=== PATIENT | male | born 1970 | race Caucasian/White ===

== ENCOUNTER 2016-12-28 19:00 | Emergency (ER) | payer BC ==
[2016-12-28] MEDS ORDERED: PREDNISONE 20 MG TABLET PO ONE (19:07)
[2016-12-28] MEDS ORDERED: FAMOTIDINE 20 MG TABLET PO ONE (19:07)
[2016-12-28] MEDS ORDERED: EPINEPHRINE INJ/PF 1 MG/1 ML AMPULE SUBCUT PRN (19:07)
--- NOTE | 2016-12-28 19:10 | ER Document Report ---
ED Medical Screen (RME) - General Chief Complaint: Allergic Reaction Stated Complaint: POSSIBLE ALLERGIC REACTION Time Seen by Provider: 12/28/16 19:06 Notes: 46-year-old male patient comes emergency room with acute allergic reaction. He took some Aleve about 5:45 PM this evening and about 30 minutes later began breaking out in a red rash with diffuse severe itching. He took 2 Benadryl about 6:30 PM. He is known to be allergic to naproxen or Naprosyn and was unaware that Aleve was that same drug. There is no respiratory problems, there is no chest pain. He will be given subcutaneous epinephrine at this time, 60 mg prednisone p.o., and 40 mg of Pepcid p.o. I have greeted and performed a rapid initial assessment of this patient. A comprehensive ED assessment and evaluation of the patient, analysis of test results and completion of the medical decision making process will be conducted by additional ED providers. TRAVEL OUTSIDE OF THE [place] IN LAST 30 DAYS: No - Related Data Allergies/Adverse Reactions: naproxen sodium [From Aleve] Allergy (Severe, Verified 04/27/16 09:03) N/V,hives,throat closes,tongue swells tylenol #3 Adverse Reaction (Severe, Uncoded 04/27/16 09:03) N/V Past Medical History - Past Medical History Cardiac Medical History: Reports: Hx Congestive Heart Failure, Hx Hypertension - Patient was treated for high blood pressure in the past, but has been taken off medications Denies: Hx Heart Attack Pulmonary Medical History: Denies: Hx Asthma, Hx Bronchitis, Hx COPD, Hx Pneumonia Neurological Medical History: Reports: Hx Seizures - as child. Denies: Hx Cerebrovascular Accident Renal/ Medical History: Reports: Hx Kidney Stones - removed of two stones 5-[address] Peña, had stent placed. Denies: Hx Peritoneal Dialysis GI Medical History: Reports: Hx Ulcer Musculoskeltal Medical History: Reports Hx Arthritis Infectious Medical History: Past Surgical History: Reports: Hx Orthopedic Surgery. Denies: Hx Pacemaker - Immunizations Hx Diphtheria, Pertussis, Tetanus Vaccination: No - unsure Physical Exam - Vital signs Vitals: Temp Pulse Resp BP Pulse Ox 98.3 F 141 H 26 H 154/98 H 97 12/28/16 19:03 12/28/16 19:03 12/28/16 19:03 12/28/16 19:03 12/28/16 19:03 Course - Vital Signs Vital signs: Temp Pulse Resp BP Pulse Ox 98.3 F 141 H 26 H 154/98 H 97 12/28/16 19:03 12/28/16 19:03 12/28/16 19:03 12/28/16 19:03 12/28/16 19:03
--- NOTE | 2016-12-28 19:45 | ER Document Report ---
ED General - General Chief Complaint: Allergic Reaction Stated Complaint: POSSIBLE ALLERGIC REACTION Time Seen by Provider: 12/28/16 19:06 Notes: 6-year-old male with an allergy to naproxen but not other NSAIDs presents with resolved whole-body redness and itching as well as dizziness all which occurred about half an hour after taking Aleve which he did not realize was the same as naproxen. He had no nausea vomiting dizziness or throat difficult breathing or wheezing. Was given meds prior to my evaluation including epinephrine steroids and Pepcid. He now feels fine except for slight jitters. Reassessed at 10 PM. He feels totally fine and has normal vital signs. Safe for discharge home. I have discussed with the patient there likely diagnosis, aftercare plan, follow -up plans and my usual and customary return precautions. They verbalized understanding of this. TRAVEL OUTSIDE OF THE [place] IN LAST 30 DAYS: No - Related Data Allergies/Adverse Reactions: naproxen sodium [From Aleve] Allergy (Severe, Verified 04/27/16 09:03) N/V,hives,throat closes,tongue swells tylenol #3 Adverse Reaction (Severe, Uncoded 04/27/16 09:03) N/V Past Medical History - Social History Smoking Status: Never Smoker Family History: Reviewed & Not Pertinent Patient has suicidal ideation: No Patient has homicidal ideation: No - Past Medical History Cardiac Medical History: Reports: Hx Congestive Heart Failure, Hx Hypertension - Patient was treated for high blood pressure in the past, but has been taken off medications Denies: Hx Heart Attack Pulmonary Medical History: Denies: Hx Asthma, Hx Bronchitis, Hx COPD, Hx Pneumonia Neurological Medical History: Reports: Hx Seizures - as child. Denies: Hx Cerebrovascular Accident Renal/ Medical History: Reports: Hx Kidney Stones - removed of two stones 5-[address] Peña, had stent placed. Denies: Hx Peritoneal Dialysis GI Medical History: Reports: Hx Ulcer Musculoskeltal Medical History: Reports Hx Arthritis Infectious Medical History: Past Surgical History: Reports: Hx Orthopedic Surgery. Denies: Hx Pacemaker - Immunizations Hx Diphtheria, Pertussis, Tetanus Vaccination: No - unsure Hx Pneumococcal Vaccination: 05/22/09 Review of Systems - Review of Systems Notes: REVIEW OF SYSTEMS GEN: Denies fever, chills, weight loss ENT: Denies sore throat, nasal discharge, ear pain EYES: Denies blurry vision, eye pain, discharge CV: Denies chest pain, palpitations, edema RESP: Denies cough, shortness of breath, wheezing GI: Denies abdominal pain, nausea, vomiting, diarrhea MSK: Denies joint pain/swelling, edema, SKIN: Denies rash, skin lesions LYMPH: Denies swollen glands/lymph nodes NEURO: Denies headache, focal weakness or numbness, dizziness PSYCH: Denies depression, suicidal or homicidal ideation PHYSICAL EXAMINATION General: No acute distress, well-nourished Head: Atraumatic, normocephalic ENT: Mouth normal, oropharynx moist, no exudates or tonsillar enlargement Eyes: Conjunctiva normal, pupils equal, lids normal Neck: No JVD, supple, no guarding CVS: Normal rate, regular rhythm, no murmurs Resp: No resp distress, equal and normal breath sounds bilaterally GI: Nondistended, soft, no tenderness to palpation, no rebound or guarding Ext: No deformities, no edema, normal range of motion in upper and lower ext Back: No CVA or midline TTP Skin: No rash, warm Lymphatic: No lymphadeopathy noted Neuro: Awake, alert. Face symmetric. GCS 15. Erythroderma pruritus Physical Exam - Vital signs Vitals: Temp Pulse Resp BP Pulse Ox 98.3 F 141 H 26 H 154/98 H 97 12/28/16 19:03 12/28/16 19:03 12/28/16 19:03 12/28/16 19:03 12/28/16 19:03 Course - Re-evaluation Re-evalutation: 12/28/16 19:40 38-year-old male presents with NSAID related anaphylaxis, Mild. He is now asymptomatic after epinephrine. I will observe him for a total of 3 hours and discharged with dual epi-pens aevrxr-som-ozeox steroids and Pepcid for 3 days. I have discussed with the patient there likely diagnosis, aftercare plan, follow -up plans and my usual and customary return precautions. They verbalized understanding of this. - Vital Signs Vital signs: Temp Pulse Resp BP Pulse Ox 98.3 F 141 H 22 H 134/95 H 94 12/28/16 19:03 12/28/16 19:03 12/28/16 19:46 12/28/16 19:46 12/28/16 19:46 Discharge - Discharge Clinical Impression: Anaphylaxis Qualifiers: Encounter type: initial encounter Qualified Code(s): T78.2XXA - Anaphylactic shock, unspecified, initial encounter Condition: Good Disposition: HOME, SELF-CARE Instructions: Anaphylaxis Kit (OM) Prescriptions: Diphenhydramine HCl [Benadryl] 25 mg PO Q6 #12 capsule Epinephrine 1 mg IM ONCE PRN #2 ml PRN Reason: Famotidine [Pepcid 20 mg Tablet] 20 mg PO DAILY #12 tablet Prednisone 40 mg PO DAILY #6 tablet
[2016-12-28 22:09] VITALS: BP 126/89
== END 2016-12-28 22:10 | disposition home or self-care (01) ==
LOC: ER 19:00
DX: T88.6XXA Anaphylactic reaction due to adverse effect of correct drug or medicament properly administered, initial encounter (principal); T39.315A Adverse effect of propionic acid derivatives, initial encounter; I10 Essential (primary) hypertension
CPT/HCPCS: 99283; 96372; J0171; J7512

== ENCOUNTER 2017-03-06 12:20 | Emergency (ER) | payer BC ==
[2017-03-06] MEDS ORDERED: ASPIRIN 325 MG TABLET PO ONE (13:32)
--- NOTE | 2017-03-06 13:33 | ER Document Report ---
ED Medical Screen (RME) - General Chief Complaint: Chest Pain Stated Complaint: BLOOD PRESSURE ISSUES Time Seen by Provider: 03/06/17 13:32 Notes: Patient states for 3-4 days he has had substernal chest pain that has been intermittent. He states every time he checks his blood pressure has been high whenever he has the pain. He states he went to his primary care provider today who referred him to the emergency department. Last stress test was 7 years ago and it was normal. He denies any associated symptoms. TRAVEL OUTSIDE OF THE [place] IN LAST 30 DAYS: No - Related Data Allergies/Adverse Reactions: naproxen sodium [From Aleve] Allergy (Severe, Verified 03/06/17 12:23) N/V,hives,throat closes,tongue swells tylenol #3 Adverse Reaction (Severe, Uncoded 03/06/17 12:23) N/V Past Medical History - Social History Chew tobacco use (# tins/day): No Frequency of alcohol use: None Drug Abuse: None - Past Medical History Cardiac Medical History: Reports: Hx Congestive Heart Failure, Hx Hypertension - Patient was treated for high blood pressure in the past, but has been taken off medications Denies: Hx Heart Attack Pulmonary Medical History: Denies: Hx Asthma, Hx Bronchitis, Hx COPD, Hx Pneumonia Neurological Medical History: Reports: Hx Seizures - as child. Denies: Hx Cerebrovascular Accident Renal/ Medical History: Reports: Hx Kidney Stones - removed of two stones 5-[address] Peña, had stent placed. Denies: Hx Peritoneal Dialysis GI Medical History: Reports: Hx Ulcer Musculoskeltal Medical History: Reports Hx Arthritis Infectious Medical History: Past Surgical History: Reports: Hx Kidney (Renal Surgery) - right, Hx Orthopedic Surgery. Denies: Hx Pacemaker - Immunizations Hx Diphtheria, Pertussis, Tetanus Vaccination: No - unsure Physical Exam - Vital signs Vitals: Temp Pulse Resp BP Pulse Ox 98.5 F 66 16 161/83 H 98 03/06/17 12:24 03/06/17 12:24 03/06/17 12:24 03/06/17 12:24 03/06/17 12:24 Course - Vital Signs Vital signs: Temp Pulse Resp BP Pulse Ox 98.5 F 66 16 161/83 H 98 03/06/17 12:24 03/06/17 12:24 03/06/17 12:24 03/06/17 12:24 03/06/17 12:24
[2017-03-06 14:09] LABS: ABSOLUTE EOSINOPHILS # (AUTO) 0.2 10^3/uL (0.0-0.6); ABSOLUTE LYMPHOCYTES (AUTO) 1.6 10^3/uL (0.5-4.7); ABSOLUTE MONOCYTES (AUTO) 0.4 10^3/uL (0.1-1.4); ABSOLUTE NEUT (AUTO) 4.2 10^3/uL (1.7-8.2); BASOPHILS % (AUTO) 0.5 % (0-2); EOSINOPHILS % (AUTO) 2.4 % (0-6); HEMATOCRIT 44.1 % (37.9-51.0); HEMOGLOBIN 15.2 g/dL (13.5-17.0); HGB HCT DIFFERENCE 1.5; LYMPHOCYTES % (AUTO) 25.5 % (13-45); MEAN CORPUSCULAR HEMOGLOBIN 29.5 pg (27.0-33.4); MEAN CORPUSCULAR HGB CONC 34.5 g/dL (32.0-36.0); MEAN CORPUSCULAR VOLUME 86 fl (80-97); MONOCYTES % (AUTO) 5.9 % (3-13); RED BLOOD COUNT 5.15 10^6/uL (4.35-5.55); RED CELL DISTRIBUTION WIDTH 14.5 % (11.5-14.0); SEGMENTED NEUTROPHILS % (AUTO) 65.7 % (42-78); WHITE BLOOD COUNT 6.5 10^3/uL (4.0-10.5)
[2017-03-06 14:24] LABS: ALANINE AMINOTRANSFERASE 42 U/L (21-72); ALBUMIN 4.4 g/dL (3.5-5.0); ALKALINE PHOSPHATASE 98 U/L (38-126); ANION GAP 11 (5-19); ASPARTATE AMINO TRANSFERASE 22 U/L (17-59); BILIRUBIN,DIRECT 0.4 mg/dL (0.0-0.4); BILIRUBIN,TOTAL 0.4 mg/dL (0.2-1.3); BLOOD UREA NITROGEN 10 mg/dL (7-20); CALCIUM 9.5 mg/dL (8.4-10.2); CARBON DIOXIDE 28 mmol/L (22-30); CHLORIDE 106 mmol/L (98-107); CREATININE RESULT 0.76 mg/dL (0.52-1.25); GLUCOSE 93 mg/dL (75-110); POTASSIUM 4.7 mmol/L (3.6-5.0); SODIUM 144.5 mmol/L (137-145); TOTAL PROTEIN 6.9 g/dL (6.3-8.2)
--- NOTE | 2017-03-06 14:30 | RADIOLOGY REPORT (SQ) ---
EXAM DESCRIPTION: CHEST PA/LAT COMPLETED DATE/TIME: 03/06/2017 2:16 pm REASON FOR STUDY: cp COMPARISON: 04/27/2016 EXAM PARAMETERS: NUMBER OF VIEWS: two views TECHNIQUE: Digital Frontal and Lateral radiographic views of the chest acquired. RADIATION DOSE: NA LIMITATIONS: none FINDINGS: LUNGS AND PLEURA: No opacities, masses or pneumothorax. No pleural effusion. MEDIASTINUM AND HILAR STRUCTURES: No masses or contour abnormalities. HEART AND VASCULAR STRUCTURES: Heart normal size. No evidence for failure. BONES: No acute findings. HARDWARE: None in the chest. OTHER: No other significant finding. IMPRESSION: NO SIGNIFICANT RADIOGRAPHIC FINDING IN THE CHEST. TECHNICAL DOCUMENTATION: JOB ID: [id number] [employer]- All Rights Reserved
--- NOTE | 2017-03-06 15:13 | ER Document Report ---
ED Cardiac - General Mode of Arrival: Ambulatory Information source: Patient TRAVEL OUTSIDE OF THE [place] IN LAST 30 DAYS: No - HPI Patient complains to provider of: Chest pain Was the onset of pain: Sudden Is the pain a: New problem Chest pain location: Substernal Quality of pain: Pressure Chest pain radiation location: None Associated symptoms: None Relieved by: Other - aspirin <EMI MOLINA - Last Filed: 03/06/17 22:28> <MIRANDA OBRIEN - Last Filed: 03/06/17 23:19> - General Chief Complaint: Chest Pain Stated Complaint: BLOOD PRESSURE ISSUES Time Seen by Provider: 03/06/17 13:32 Notes: Patient is a 46-year-old male that presents to the emergency department today with complaints of chest pain prior to arrival. Patient states he has been having intermittent chest pain over the last few days and every time he develops chest pain he has found that his blood pressure is elevated into the 150s and 160s systolic. Patient states he took aspirin prior to arrival today which relieved his chest pain. Patient is on 20 mg of lisinopril for hypertension and has been for the last 3 or 4 months. Patient states when he gets the chest pain he is at rest, stating the most strenuous activity he has done in the last few days is "the laundry". Patient states he believes his grandfather had coronary artery disease, he has hyperlipidemia, hypertension, and is a smoker. Patient's last stress test was in 2006. Patient denies any radiation of pain. (EMI MOLINA) - Related Data Allergies/Adverse Reactions: naproxen sodium [From Aleve] Allergy (Severe, Verified 03/06/17 12:23) N/V,hives,throat closes,tongue swells tylenol #3 Adverse Reaction (Severe, Uncoded 03/06/17 12:23) N/V Past Medical History - General Information source: Patient - Social History Smoking Status: Current Every Day Smoker Cigarette use (# per day): Yes Chew tobacco use (# tins/day): No Frequency of alcohol use: None Drug Abuse: None Lives with: Family Family History: Reviewed & Not Pertinent Patient has suicidal ideation: No - Past Medical History Cardiac Medical History: Reports: Hx Congestive Heart Failure, Hx Hypercholesterolemia, Hx Hypertension - on 20mg Lisinopril for x3-4 months Pulmonary Medical History: Neurological Medical History: Reports: Hx Seizures - as child Renal/ Medical History: Reports: Hx Kidney Stones - removed of two stones 5-[address] Peña, had stent placed GI Medical History: Reports: Hx Ulcer Musculoskeltal Medical History: Reports Hx Arthritis Infectious Medical History: Past Surgical History: Reports: Hx Kidney (Renal Surgery) - right, Hx Orthopedic Surgery - Immunizations Hx Diphtheria, Pertussis, Tetanus Vaccination: No - unsure Hx Pneumococcal Vaccination: 05/22/09 <EMI MOLINA - Last Filed: 03/06/17 22:28> Review of Systems - Review of Systems Constitutional: No symptoms reported EENT: No symptoms reported Cardiovascular: See HPI, Chest pain - prior to arrival, relieved with aspirin which was taken prior to arrival, Other - elevated blood pressure Respiratory: No symptoms reported Gastrointestinal: No symptoms reported Genitourinary: No symptoms reported Male Genitourinary: No symptoms reported Musculoskeletal: No symptoms reported Skin: No symptoms reported Hematologic/Lymphatic: No symptoms reported Neurological/Psychological: No symptoms reported -: Yes All other systems reviewed and negative <DARLENE MOLINAON - Last Filed: 03/06/17 22:28> Physical Exam <JESSEDARLENEEMI - Last Filed: 03/06/17 22:28> <MIRANDA OBRIEN - Last Filed: 03/06/17 23:19> - Vital signs Vitals: Temp Pulse Resp BP Pulse Ox 98.5 F 66 16 161/83 H 98 03/06/17 12:24 03/06/17 12:24 03/06/17 12:24 03/06/17 12:24 03/06/17 12:24 - Notes Notes: Physical Exam: General: Alert, appears well. HEENT: Normocephalic. Atraumatic. PERRL. Extraocular movements intact. Oropharynx clear. Neck: Supple. Non-tender. Respiratory: No respiratory distress. Clear and equal breath sounds bilaterally. Cardiovascular: Regular rate and rhythm. Abdominal: Normal Inspection. Non-tender. No distension. Normal Bowel Sounds. Back: Non-tender. No deformity or step off. Extremities: Moves all four extremities. Upper extremities: Normal inspection. Normal ROM. Lower extremities: Normal inspection. No edema. Normal ROM. Neurological: Normal cognition. AAOx4. Normal speech. Psychological: Normal affect. Normal Mood. Skin: Warm. Dry. Normal color. (EMI MOLINA) Course - Laboratory Result Diagrams: 03/06/17 13:50 03/06/17 13:50 <EMI MOLINA - Last Filed: 03/06/17 22:28> - Laboratory Result Diagrams: 03/06/17 13:50 03/06/17 13:50 - Diagnostic Test Radiology reviewed: Reports reviewed - EKG Interpretation by Me EKG shows normal: Sinus rhythm Rate: Normal Rhythm: NSR <MIRANDA OBRIEN - Last Filed: 03/06/17 23:19> - Re-evaluation Re-evalutation: 03/06/17 Patient is a 46-year-old male with history of high blood pressure, high cholesterol, and smoking who comes in complaining of chest pain even at rest. Patient has been strongly encouraged to stay for workup due to what he is describing is unstable angina. Patient and his would prefer him to go home and follow-up with outpatient. Understand the risk of heart attack and . Patient will be given discharge paperwork's and is to follow-up with his primary for an outpatient stress test. Return immediately if any chest pain or any other concerns. (MIRANDA OBRIEN) - Vital Signs Vital signs: Temp Pulse Resp BP Pulse Ox 98.5 F 66 14 118/80 99 03/06/17 12:24 03/06/17 12:24 03/06/17 15:01 03/06/17 15:01 03/06/17 15:01 - Laboratory Laboratory results interpreted by me: 03/06/17 13:50 RDW 14.5 H Discharge <EMI MOLINA - Last Filed: 03/06/17 22:28> <MIRANDA OBRIEN - Last Filed: 03/06/17 23:19> - Discharge Clinical Impression: Chest pain Qualifiers: Chest pain type: unspecified Qualified Code(s): R07.9 - Chest pain, unspecified Condition: Stable Disposition: HOME, SELF-CARE Additional Instructions: Your chest pain is concerning for underlying heart disease. It is recommended that you stay in the hospital to have a further workup. If you would like to go home, it is recommended that you follow-up with your doctor as soon as possible for an outpatient stress test. If you experience any further chest pain, please come to the emergency department immediately. Please take an aspirin daily. Qian Attestation: 03/06/17 23:19 I personally performed the services described in the documentation, reviewed and edited the documentation which was dictated to the scribe in my presence, and it accurately records my words and actions. (MIRANDA OBRIEN) Scribe Documentation - Scribe Written by Qian:: Qian He, 03/06/2017 1608 acting as scribe for :: Natanael <EMI MOLINA - Last Filed: 03/06/17 22:28>
[2017-03-06 15:31] VITALS: BP 118/80
--- NOTE | 2017-03-06 18:27 | EKG REPORT ---
SEVERITY:- NORMAL ECG - SINUS RHYTHM : Confirmed by: Natalya Melton 06-Mar-2017 18:27:29
== END 2017-03-06 15:33 | disposition home or self-care (01) ==
LOC: ER 12:20
DX: R07.9 Chest pain, unspecified (principal); I10 Essential (primary) hypertension; E78.00 Pure hypercholesterolemia, unspecified; I50.9 Heart failure, unspecified; F17.210 Nicotine dependence, cigarettes, uncomplicated; Z79.899 Other long term (current) drug therapy
CPT/HCPCS: 36415; 71020; 80053; 84484; 85025; 93005; 93010; 99285

== ENCOUNTER 2017-05-25 19:04 | Emergency (ER) | payer BC ==
--- NOTE | 2017-05-25 19:33 | ER Document Report ---
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 Patient states that he was usual state of health until yesterday when he felt "exhausted" along with nonproductive cough and sinus congestion. Patient was sitting at his desk doing paperwork when he had a syncopal episode. EMS reports that his glucose in the field was 122 and that his blood pressure was 80/50. Medications: Hydrochlorothiazide, lisinopril, Lipitor. TRAVEL OUTSIDE OF THE [place] IN LAST 30 DAYS: No - HPI Onset: Just prior to arrival Onset/Duration: Gradual Quality of pain: No pain Severity: None Pain Level: Denies Associated symptoms: Weakness. denies: Chest pain, Fever, Shortness of breath Exacerbated by: Denies Relieved by: Denies Similar symptoms previously: No Recently seen / treated by doctor: No - Related Data Allergies/Adverse Reactions: naproxen sodium [From Aleve] Allergy (Severe, Verified 03/06/17 12:23) N/V,hives,throat closes,tongue swells prednisone Allergy (Intermediate, Verified 05/25/17 20:28) Hives tylenol #3 Adverse Reaction (Severe, Uncoded 03/06/17 12:23) N/V Home Medications: Current Home Medications Atorvastatin Calcium [Atorvastatin Calcium] 10 mg PO QHS 05/25/17 [History] Hydrochlorothiazide [Hydrochlorothiazide] 12.5 mg PO DAILY 05/25/17 [History] Past Medical History - General Information source: Patient - Social History Smoking Status: Never Smoker Cigarette use (# per day): No Smoking Education Provided: No Frequency of alcohol use: None Drug Abuse: None Lives with: Family Family History: Reviewed & Not Pertinent Patient has suicidal ideation: No Patient has homicidal ideation: No - Past Medical History Cardiac Medical History: Reports: Hx Congestive Heart Failure, Hx Hypercholesterolemia, Hx Hypertension - on 20mg Lisinopril for x3-4 months Denies: Hx Heart Attack Pulmonary Medical History: Denies: Hx Asthma, Hx Bronchitis, Hx COPD, Hx Pneumonia Neurological Medical History: Reports: Hx Seizures - as child. Denies: Hx Cerebrovascular Accident Renal/ Medical History: Reports: Hx Kidney Stones - removed of two stones 5-[address] Peña, had stent placed. Denies: Hx Peritoneal Dialysis GI Medical History: Reports: Hx Ulcer Musculoskeltal Medical History: Reports Hx Arthritis Infectious Medical History: Past Surgical History: Reports: Hx Kidney (Renal Surgery) - right, Hx Orthopedic Surgery. Denies: Hx Pacemaker - Immunizations Hx Diphtheria, Pertussis, Tetanus Vaccination: No - unsure Hx Pneumococcal Vaccination: 05/22/09 Review of Systems - Review of Systems Constitutional: Chills, Fever, Weakness EENT: Nose congestion Cardiovascular: Syncope Respiratory: Cough. denies: Hemoptysis, Short of breath, Wheezing Gastrointestinal: No symptoms reported Genitourinary: No symptoms reported Male Genitourinary: No symptoms reported Musculoskeletal: Muscle pain, Muscle stiffness Skin: No symptoms reported Hematologic/Lymphatic: No symptoms reported Neurological/Psychological: No symptoms reported Physical Exam - Vital signs Vitals: Resp Pulse Ox 12 100 05/25/17 19:33 05/25/17 19:33 Notes: Physical exam: GENERAL: 46-year-old man who complains of no pain. He is alert and oriented 3. His skin looks mottled and he appears weak. HEAD: Atraumatic, normocephalic. EYES: Pupils equal round and reactive to light, extraocular movements intact, sclera anicteric, conjunctiva are normal. ENT: TMs normal, nares patent, oropharynx clear without exudates. dry mucous membranes. NECK: Normal range of motion, supple without obvious mass or JVD. LUNGS: Breath sounds clear to auscultation bilaterally and equal. No wheezes rales or rhonchi. HEART: Regular rate and rhythm without murmurs, rubs or gallops. ABDOMEN: Soft, normoactive bowel sounds. No tenderness to palpation. No guarding, no rebound. No masses appreciated. No palpable masses. Rectal: Brown stool, sent for study EXTREMITIES: Normal range of motion, no pitting or edema. No clubbing or cyanosis. NEUROLOGICAL: Cranial nerves II through XII grossly intact. Normal speech, moving all extremities. PSYCH: Normal mood, normal affect. SKIN: Warm, Dry, normal turgor, no rashes or lesions noted. Bedside ultrasound: No abnormal dilatation of the order to the bifurcation Course - Re-evaluation Re-evalutation: 05/25/17 19:54 Patient is alert and oriented 3. He is without complaints at this time. His blood pressure is 115/70. He is accompanied by his - Vital Signs Vital signs: Temp Pulse Resp BP Pulse Ox 98.4 F 73 20 107/63 95 05/25/17 21:00 05/26/17 02:05 05/26/17 03:01 05/26/17 03:00 05/26/17 03:01 - Laboratory Result Diagrams: 05/25/17 19:35 05/25/17 20:45 Laboratory results interpreted by me: 05/25/17 05/25/17 05/25/17 19:35 19:58 20:45 RDW 14.2 H Seg Neutrophils % 81.7 H Lymphocytes % 9.8 L Potassium 3.3 L Glucose 117 H Lactic Acid 2.5 H Calcium 8.0 L Creatine Kinase 187 H Total Protein 5.8 L Albumin 3.4 L Urine Urobilinogen 05/26/17 00:00 RDW Seg Neutrophils % Lymphocytes % Potassium Glucose Lactic Acid Calcium Creatine Kinase Total Protein Albumin Urine Urobilinogen 2.0 H - Diagnostic Test Radiology reviewed: Image reviewed - EKG Interpretation by Me Rate: Normal Rhythm: NSR - EKG shows normal sinus rhythm with a ventricular rate of 73, there is no acute ST elevation or depression. The EKG is similar to one performed in February 2017. There may be a slight R-wave difference in V3 from position changes. Discharge - Discharge Clinical Impression: Syncope, Dehydration, Influenza Condition: Stable Disposition: HOME, SELF-CARE Instructions: Influenza ([facility]) Additional Instructions: As discussed, your influenza test was positive. Your blood work looked good. Your potassium was a slight bit low and you were given supplemental potassium in the ER. The cardiac enzymes were normal. The CT scan looked good: There is no evidence of blood clots or pneumonias. Recommendations: Rest, drink plenty of fluids. Take the Tamiflu as prescribed. Tylenol and Advil for pain. Follow-up with your primary care doctor in the next few days. Follow-up with Dr. Melton as planned. Return to the emergency room for any shortness of breath, chest pain, feeling faint or any concerns or getting worse. Prescriptions: Oseltamivir Phosphate [Tamiflu 75 mg Capsule] 75 mg PO BID #9 capsule Forms: Return to Work
[2017-05-25 19:49] LABS: ABSOLUTE LYMPHOCYTES (AUTO) 0.8 10^3/uL (0.5-4.7); ABSOLUTE MONOCYTES (AUTO) 0.7 10^3/uL (0.1-1.4); BASOPHILS % (AUTO) 0.5 % (0-2); EOSINOPHILS % (AUTO) 0.1 % (0-6); HEMATOCRIT 42.3 % (37.9-51.0); HEMOGLOBIN 14.4 g/dL (13.5-17.0); LYMPHOCYTES % (AUTO) 9.8 % (13-45); MEAN CORPUSCULAR HEMOGLOBIN 29.2 pg (27.0-33.4); MEAN CORPUSCULAR VOLUME 86 fl (80-97); MONOCYTES % (AUTO) 7.9 % (3-13); PLATELET COUNT 185 10^3/uL (150-450); RED BLOOD COUNT 4.93 10^6/uL (4.35-5.55); RED CELL DISTRIBUTION WIDTH 14.2 % (11.5-14.0); SEGMENTED NEUTROPHILS % (AUTO) 81.7 % (42-78); TOTAL CELLS COUNTED % (AUTO) 100 %; WHITE BLOOD COUNT 8.5 10^3/uL (4.0-10.5)
[2017-05-25] MEDS: NORMAL SALINE 1000 ML 1,000 ML IV PRN ×2 (19:51→19:54)
--- NOTE | 2017-05-25 20:17 | RADIOLOGY REPORT (SQ) ---
EXAM DESCRIPTION: CHEST SINGLE VIEW COMPLETED DATE/TIME: 05/25/2017 8:02 pm REASON FOR STUDY: syncope COMPARISON: 03/06/2017. EXAM PARAMETERS: NUMBER OF VIEWS: One view. TECHNIQUE: Single frontal radiographic view of the chest acquired. RADIATION DOSE: NA LIMITATIONS: None. FINDINGS: LUNGS AND PLEURA: No opacities, masses or pneumothorax. No pleural effusion. MEDIASTINUM AND HILAR STRUCTURES: No masses. Contour normal. HEART AND VASCULAR STRUCTURES: Heart normal in size. Normal vasculature. BONES: No acute findings. HARDWARE: None in the chest. OTHER: No other significant finding. IMPRESSION: NO ACUTE RADIOGRAPHIC FINDING IN THE CHEST. TECHNICAL DOCUMENTATION: JOB ID: [id number] [employer] All Rights Reserved
[2017-05-25 20:51] LABS: A TYPE INFLUENZA AG POSITIVE (NEGATIVE); B INFLUENZA AG NEGATIVE (NEGATIVE)
[2017-05-25] MEDS ORDERED: ONDANSETRON HCL INJ/PF 4 MG/2 ML SDV IV ONE (21:11)
[2017-05-25 21:19] LABS: ALANINE AMINOTRANSFERASE 48 U/L (21-72); ALBUMIN 3.4 g/dL (3.5-5.0); ALKALINE PHOSPHATASE 89 U/L (38-126); ANION GAP 12 (5-19); ASPARTATE AMINO TRANSFERASE 41 U/L (17-59); BILIRUBIN,DIRECT 0.3 mg/dL (0.0-0.4); BILIRUBIN,TOTAL 0.5 mg/dL (0.2-1.3); BLOOD UREA NITROGEN 16 mg/dL (7-20); CARBON DIOXIDE 23 mmol/L (22-30); CHLORIDE 102 mmol/L (98-107); CREATINE KINASE 187 U/L (55-170); GLUCOSE 117 mg/dL (75-110); POTASSIUM 3.3 mmol/L (3.6-5.0); SODIUM 137.4 mmol/L (137-145); TOTAL PROTEIN 5.8 g/dL (6.3-8.2)
[2017-05-25 21:31] LABS: NT PRO BNP 47 pg/mL (<125)
[2017-05-25 21:32] LABS: CREATINE KINASE MB < 0.22 ng/mL (<4.55); TROPONIN I < 0.012 ng/mL
[2017-05-25] MEDS ORDERED: DEXTROSE 5%-1/2 NORMAL SALINE 1,000 ML IV ONE (21:37)
[2017-05-25] MEDS ORDERED: POTASSIUM CHLORIDE 10 MEQ TABLET.SA PO ONE (21:37)
[2017-05-25] MEDS ORDERED: OSELTAMIVIR PHOSPHATE 75 MG CAPSULE PO ONE (21:42)
[2017-05-25] MEDS: POTASSI CL 20 MEQ/50 ML RIDER 20 MEQ/50 ML RTUPB IV SCH ×2 (22:03→23:53)
[2017-05-26 00:18] LABS: APPEARANCE,URINE SLIGHTLY-CLOUDY; BILIRUBIN,URINE NEGATIVE (NEGATIVE); COLOR,URINE YELLOW; GLUCOSE, URINE NEGATIVE (NEGATIVE); KETONES,URINE NEGATIVE (NEGATIVE); LEUKOCYTE ESTERASE,URINE NEGATIVE (NEGATIVE); NITRITE,URINE NEGATIVE (NEGATIVE); PROTEIN,URINE NEGATIVE (NEGATIVE); URINE SPECIFIC GRAVITY 1.012
--- NOTE | 2017-05-26 01:28 | RADIOLOGY REPORT (SQ) ---
EXAM DESCRIPTION: CTA CHEST CLINICAL HISTORY: 46 years Male, sob COMPARISON: None. TECHNIQUE: 100 mL Isovue-370 IV contrast. Multiplanar reformat. This exam was performed according to our departmental dose-optimization program, which includes automated exposure control, adjustment of the mA and/or kV according to patient size and/or use of iterative reconstruction technique. FINDINGS: No pulmonary embolus. Mild nonspecific subcarinal lymphadenopathy includes a 1.4 x 0.6 cm lymph node, image 48 of series 3. Azygos lobe. 0.3 cm likely benign pulmonary nodules of bilateral mid lung ladd, image 45 of series 4; no routine follow-up recommended. Mild disc desiccation. Inferior neck, axillae, mediastinum, lungs, airway, lymphatics, heart, vasculature, upper abdomen, and musculoskeleton appear otherwise unremarkable. IMPRESSION: Mild subcarinal lymphadenopathy. Else, no acute cardiopulmonary findings. No pulmonary embolus.
[2017-05-26 03:18] VITALS: BP 107/63
--- NOTE | 2017-05-26 09:17 | EKG REPORT ---
SEVERITY:- ABNORMAL ECG - SINUS RHYTHM INCOMPLETE RIGHT BUNDLE BRANCH BLOCK CONSIDER ANTERIOR INFARCT : Confirmed by: Natalya Melton 26-May-2017 09:16:50
== END 2017-05-26 03:33 | disposition home or self-care (01) ==
LOC: ER 19:04
DX: J11.1 Influenza due to unidentified influenza virus with other respiratory manifestations (principal); R55 Syncope and collapse; E86.0 Dehydration; R05 Cough; R53.1 Weakness; R68.83 Chills (without fever); E78.00 Pure hypercholesterolemia, unspecified; I10 Essential (primary) hypertension; Z79.899 Other long term (current) drug therapy; Z88.6 Allergy status to analgesic agent; Z88.8 Allergy status to other drugs, medicaments and biological substances
CPT/HCPCS: 93005; 99285; 96361; 96375; 96365; 96366; 36415; 82553; 82550; 83605; 83735; 85025; 82272; 80053; 81001; 84484; 87804; 83880; 71045; 71275; 93010; J3490; J2405; J3480; J7030